=== PATIENT | female | born 1955 | race Caucasian/White ===

== ENCOUNTER 2016-10-08 14:02 | Emergency (ER) | payer OTHER ==
[~2016-10-08] VITALS: Ht 165.1 cm; Wt 86.5 kg
[~2016-10-08 14:02] MED LIST: AMLO5TAB4 PO; GEMF600T60 PO; GLIP-95 PO; METF500T4 PO; MTF1000T PO; PANT40TA4 PO
[2016-10-08 14:03] VITALS: Ht 165.1 cm; Wt 86.5 kg
[2016-10-08 14:32] LABS: BASOPHIL # 0.1 10^3/ul (0.0-0.1); BASOPHILS % 0.6 % (0.0-2.0); EOSINOPHILS # 0.1 10^3/ul (0.0-0.5); EOSINOPHILS % 0.8 % (0.0-7.0); HEMATOCRIT 42.4 % (37.0-47.0); HEMOGLOBIN 14.3 g/dl (12.0-16.0); LYMPHOCYTES # 4.3 10^3/ul (0.8-2.9); LYMPHOCYTES % 45.7 % (15.0-51.0); MEAN CORPUSCULAR HGB CONC 33.7 g/dl (32.0-37.0); MEAN PLATELET VOLUME 10.9 fl (7.4-10.4); MONOCYTE # 0.6 10^3/ul (0.3-0.9); MONOCYTES % 6.1 % (0.0-11.0); NEUTROPHIL # 4.4 10^3/ul (1.6-7.5); NEUTROPHILS % 46.5 % (39.0-77.0); PLATELET COUNT 301 10^3/UL (140-415); RED BLOOD COUNT 5.11 10^6/ul (4.20-5.40); RED CELL DISTRIBUTION WIDTH 12.9 % (11.5-14.5); WHITE BLOOD COUNT 9.5 10^3/ul (4.8-10.8)
[2016-10-08 14:56] LABS: INR 0.81; PROTIME 11.2 Sec (12.2-14.2); PT RATIO 0.9
[2016-10-08 14:57] LABS: PARTIAL THROMBOPLASTIN TIME 26.4 Sec (25.0-35.0)
[2016-10-08 14:59] LABS: ANION GAP 22 (8-16); BLOOD UREA NITROGEN 15 mg/dl (7-20); CARBON DIOXIDE 27 mmol/L (21-31); CHLORIDE 97 mmol/L (97-110); CREATININE 0.75 mg/dl (0.44-1.00); GLUCOSE 186 mg/dl (70-220); POTASSIUM 3.8 mmol/L (3.5-5.1); SODIUM 142 mmol/L (135-144)
--- NOTE | 2016-10-08 15:01 | RADRPT ---
PROCEDURE: XR Chest. CLINICAL INDICATION: Chest pain TECHNIQUE: A single AP view of the chest was obtained. COMPARISON: Chest x-ray dated 11/28/2014 FINDINGS: No focal airspace opacification, pleural effusion or pneumothorax is seen. The cardiomediastinal si lhouette is within normal limits for size. The osseous structures demonstrate degenerative changes of the spine. IMPRESSION: No radiographic evidence of acute cardiopulmonary disease. No significant interval change. RPTAT: HH .Macy Cespedes MD, Date Time Electronically viewed and signed by .Macy Cespedes MD, MD on 10/08/2016 15:00 .G/
[2016-10-08 15:11] LABS: TROPONIN-I < 0.012 ng/ml (0.00-0.12)
[2016-10-08] MEDS ORDERED: LABETALOL HCL 20MG INJ IV ONE (15:30)
[2016-10-08] MEDS ORDERED: ONDANSETRON 4 MG INJ IV STA (15:42)
[2016-10-08] MEDS ORDERED: SOD CHLORIDE 0.9% 500 ML IV ONE (16:00)
[2016-10-08 16:30] LABS: ADD UMIC NO; UR ASCORBIC ACID NEGATIVE (NEGATIVE); UR BILIRUBIN (Dip) NEGATIVE (NEGATIVE); UR BLOOD (Dip) NEGATIVE (NEGATIVE); UR CLARITY CLEAR (CLEAR); UR COLOR STRAW (YELLOW); UR GLUCOSE (Dip) NEGATIVE (NEGATIVE); UR KETONES (Dip) NEGATIVE (NEGATIVE); UR LEUKOCYTE ESTERASE (Dip) NEGATIVE Leu/ul (NEGATIVE); UR NITRITE (Dip) NEGATIVE (NEGATIVE); UR SPECIFIC GRAVITY (Dip) 1.006 (1.003-1.030); UR TOTAL PROTEIN (Dip) NEGATIVE (NEGATIVE); UR UROBILINOGEN (Dip) NEGATIVE (NEGATIVE)
[2016-10-08] MEDS ORDERED: AMLO-147 PO (17:07)
[2016-10-08 17:15] VITALS: BP 116/62; PULSE 62; RESP 16; TEMP 98.9
--- NOTE | 2016-10-08 17:16 | ERD ---
ER Documentation Chief Complaint Date/Time DATE: 10/08/16 TIME: 17:12 Chief Complaint headache, dizziness and high blood pressure HPI This 61-year-old female presents emergency room for slight occipital headache, feeling lightheaded and having high blood pressure when she checked at home. All these symptoms occurred this morning. She is taking a combination amlodipine and benazepril tablet. She believes that 1 of the medications she is allergic to a she gives her cough makes her feel like her throat is swelling. She did not take this medication today because of that. States that she is a feels well and her blood pressure is not high. She denies chest pain shortness of breath. She has had no fever chills recently. States that she complained about this reaction to her primary care doctor who said that it was not likely related to her medications. She said she is to be taking the amlodipine and benazepril separate and that is why she believes medication is the benazepril. ROS All systems reviewed and are negative except as per history of present illness. Medications Home Meds Active Scripts Amlodipine Besylate* (Amlodipine Besylate*) 10 Mg Tablet, 10 MG PO DAILY, #30 TAB Prov:MATT WISDOM DO 10/08/16 Pantoprazole (Protonix) 40 Mg Tabec, 40 MG PO DAILY, #30 TAB Prov:KATI HORN MD 11/28/14 Reported Medications Metformin* (Glucophage*) 1,000 Mg Tablet, 1000 MG PO QAM, TAB 11/28/14 Metformin* (Glucophage*) 500 Mg Tab, 500 MG PO QPM, TAB 11/28/14 Glipizide* (Glipizide*) 10 Mg Tablet, 10 MG PO BID, TAB 11/28/14 Amlodipine Besylate* (Norvasc*) 5 Mg Tablet, 5 MG PO DAILY, TAB 11/28/14 Gemfibrozil* (Gemfibrozil*) 600 Mg Tablet, 600 MG PO BID, TAB 11/28/14 Allergies Allergies: Coded Allergies: No Known Allergy (Unverified , 11/28/14) PMhx/Soc Medical and Surgical Hx: pt denies Surgical Hx Hx Neurological Disorder: No Hx Respiratory Disorders: No Hx Cardiac Disorders: Yes (HTN) Hx Psychiatric Problems: No Hx Miscellaneous Medical Probl: Yes (DM, hyperlipidemia) Hx Alcohol Use: No Hx Substance Use: No Hx Tobacco Use: No Smoking Status: Never smoker Physical Exam Vitals Vital Signs Date Time Temp Pulse Resp B/P Pulse Ox O2 Delivery O2 Flow Rate FiO2 10/08/16 17:15 98.9 62 16 116/62 99 Room Air 10/08/16 15:30 81 16 144/84 100 Room Air 10/08/16 14:30 Nasal Cannula 2 10/08/16 14:03 98.0 80 18 203/98 99 Physical Exam Const: [] Mild distress Head: Atraumatic Eyes: Normal Conjunctiva, EOMI, Scott ENT: Normal External Ears, Nose and Mouth. Neck: Full range of motion..~ No meningismus. Resp: Clear to auscultation bilaterally Cardio: Regular rate and rhythm, no murmurs Abd: Soft, non tender, non distended. Normal bowel sounds Skin: No petechiae or rashes Back: No midline or flank tenderness Ext: No cyanosis, or edema Neur: Awake and alert and oriented 3, cranial nerves II through XII intact, no cerebellar deficits Psych: Normal Mood and Affect Result Diagram: 10/08/16 1420 10/08/16 1420 Results 24 hrs Laboratory Tests Test 10/08/16 14:20 10/08/16 16:05 White Blood Count 9.510^3/ul Red Blood Count 5.1110^6/ul Hemoglobin 14.3g/dl Hematocrit 42.4% Mean Corpuscular Volume 83.0fl Mean Corpuscular Hemoglobin 28.0pg Mean Corpuscular Hemoglobin Concent 33.7g/dl Red Cell Distribution Width 12.9% Platelet Count 22025^3/UL Mean Platelet Volume 10.9fl Neutrophils % 46.5% Lymphocytes % 45.7% Monocytes % 6.1% Eosinophils % 0.8% Basophils % 0.6% Nucleated Red Blood Cells % 0.0/100WBC Neutrophils # 4.410^3/ul Lymphocytes # 4.310^3/ul Monocytes # 0.610^3/ul Eosinophils # 0.110^3/ul Basophils # 0.110^3/ul Nucleated Red Blood Cells # 0.010^3/ul Prothrombin Time 11.2Sec Prothrombin Time Ratio 0.9 INR International Normalized Ratio 0.81 Activated Partial Thromboplast Time 26.4Sec Sodium Level 142mmol/L Potassium Level 3.8mmol/L Chloride Level 97mmol/L Carbon Dioxide Level 27mmol/L Anion Gap 22 Blood Urea Nitrogen 15mg/dl Creatinine 0.75mg/dl Glucose Level 186mg/dl Calcium Level 10.0mg/dl Troponin I < 0.012ng/ml Urine Color STRAW Urine Clarity CLEAR Urine pH 6.0 Urine Specific [place] 1.006 Urine Ketones NEGATIVEmg/dL Urine Nitrite NEGATIVEmg/dL Urine Bilirubin NEGATIVEmg/dL Urine Urobilinogen NEGATIVEmg/dL Urine Leukocyte Esterase NEGATIVELeu/ul Urine Hemoglobin NEGATIVEmg/dL Urine Glucose NEGATIVEmg/dL Urine Total Protein NEGATIVEmg/dl Current Medications Medications (Trade) Dose Ordered Sig/Clint Route PRN Reason Start Time Stop Time Status Last Admin Dose Admin Labetalol HCl (Labetalol) 20 mg ONCE ONCE IV 10/08/16 15:30 10/08/16 15:44 DC Ondansetron HCl 4 mg 4 mg ONCE STAT IV 10/08/16 15:42 10/08/16 15:43 DC 10/08/16 16:25 Sodium Chloride (NS) 500 ml @ 500 mls/hr Q1H ONCE IV 10/08/16 16:00 10/08/16 16:59 DC 10/08/16 16:25 Procedures/MDM Patient with hypertensive episode causing symptoms of headache and dizziness. Patient's blood pressure lowered in the emergency room without treatment and her symptoms resolved as well. She had been given Zofran IV which resolved her nausea completely. She is also given normal saline. Her headache dissipated without other treatments. Her lightheadedness resolved as well. Patient admits that she may not be drinking enough fluids. Partial dehydration is possibly contributing factor. I have low suspicion for any acute coronary syndrome or subarachnoid hemorrhage given the pain pattern and easy resolution. Discharge with primary care follow-up in the next 2 days as well as return precautions to the ER. EKG interpretation: Sinus origin of rhythm without ST elevations or depressions concerning for acute ischemia, no concerning intervals. clinical research monitor interpretation: Sinus rhythm without arrhythmia Chest x-ray interpretation: I see no acute process. I see no vitamin Rojas, no pulmonary edema, no infiltrates, no fracture Departure Diagnosis: Primary Impression: Nausea Additional Impressions: Uncontrolled hypertension Near syncope Condition: Stable Patient Instructions: Hypertension, Established, Out Of Control Additional Instructions: Llame al doctor AMELIE y karen dior BRISEYDA PARA DENTRO DE 1-2 OLVERA.Dgale a la secretaria que nosotros le instruimos hacer esta briseyda.Avise o llame si blunt condicin se empeora antes de la briseyda. Regresa aqui si peor o no mejor. MATT WISDOM DO Oct 08, 2016 17:16
== END 2016-10-08 17:16 | disposition home or self-care (01) ==
LOC: E/R 14:02
DX: R11.0 Nausea (principal); I10 Essential (primary) hypertension; R55 Syncope and collapse; E11.9 Type 2 diabetes mellitus without complications; Z79.84 Long term (current) use of oral hypoglycemic drugs
CPT/HCPCS: 36415; 71010; 80048; 81003; 84484; 85025; 85610; 85730; 96374; 99285; J2405; J7040; 93005